=== PATIENT | male | born 1965 | race Caucasian/White ===

== ENCOUNTER 2020-07-12 11:14 | Inpatient (IN) | payer OTHER ==
[2020-07-12 11:40] VITALS: BMI 27.1
[2020-07-12] MEDS ORDERED: LORazepam 1 MG TABLET PO PRN (11:58)
[2020-07-12] MEDS ORDERED: ACETAMINOPHEN 325 MG TABLET (FP) PO PRN ×2 (11:58)
[2020-07-12] MEDS ORDERED: BISMUTH SUBSALICYLATE 524 MG/30 ML UD PO PRN (11:58)
[2020-07-12] MEDS ORDERED: MENTHOL/PHENOL 1 EACH UD MM PRN (11:58)
[2020-07-12] MEDS ORDERED: NICOTINE POLACRILEX 2 MG GUM BUC PRN (11:58)
[2020-07-12] MEDS ORDERED: MAG HYDROX/AL HYDROX/SIMETH 30 ML UNIT-DOSE CUP PO PRN (11:58)
[2020-07-12] MEDS ORDERED: MAGNESIUM HYDROX 2400MG/30ML ORAL SUSPENSION 30 ML CUP PO PRN (11:58)
[2020-07-12] MEDS ORDERED: ONDANSETRON *ODT* 4 MG TABLET SL PRN (11:58)
[2020-07-12] MEDS ORDERED: MAGNESIUM CITRATE 300 ML BOTTLE PO PRN (11:58)
[2020-07-12] MEDS ORDERED: INSULIN (NOVOLOG) ASPART 100 UNITS/ML 10ML VIAL ONE (12:36)
[2020-07-12] MEDS ORDERED: INSULIN (NOVOLOG) ASPART 100 UNITS/ML 10ML VIAL SQ ONE ×2 (13:30→19:04)
[2020-07-12] MEDS: PRENATAL VITAMINS W/ FOLIC ACID TABLET (FP) PO SCH (13:39)
[2020-07-12] MEDS: LORazepam 2 MG TABLET PO SCH ×3 (13:39→22:56)
[2020-07-12] MEDS: hydrOXYzine PAMOATE 25 MG CAPSULE (FP) PO SCH ×3 (13:39→22:56)
[2020-07-12 14:42] LABS: HEMATOCRIT 40.6 % (35.4-49); HEMOGLOBIN 14.2 GM/dL (11.7-16.9); MCH 30.6 pg (25.7-33.7); MEAN CELL VOLUME 87.2 fl (80-96); MEAN PLT VOLUME 8.8 fl (7.5-11.1); PLATELET COUNT 124 K/MM3 (134-434); RBC 4.65 M/mm3 (4.00-5.60); RDW 15.8 % (11.9-15.9); WHITE BLOOD COUNT 5.7 K/mm3 (4.0-10.0)
[2020-07-12 14:49] LABS: CHLORIDE 97 mmol/L (98-107); SODIUM 129 mmol/L (136-145)
[2020-07-12 14:58] LABS: ALBUMIN 3.5 g/dl (3.4-5.0); ANION GAP 11 MMOL/L (8-16); CO2 22 mmol/L (21-32)
[2020-07-12 14:59] LABS: CALCIUM 9.2 mg/dL (8.5-10.1)
[2020-07-12 15:01] LABS: CREATININE 0.8 mg/dL (0.55-1.3); SGOT/AST 63 U/L (15-37); SGPT/ALT 49 U/L (13-61)
[2020-07-12 15:02] LABS: BILIRUBIN,TOTAL 2.8 mg/dL (0.2-1)
[2020-07-12 15:03] LABS: TOT PROT 7.7 g/dl (6.4-8.2)
[2020-07-12 15:04] LABS: ALK PHOS 194 U/L (45-117)
[2020-07-12 15:09] LABS: GLUCOSE,RANDOM 440 mg/dL (74-106)
[2020-07-12] MEDS ORDERED: INSULIN SLIDING SCALE (NOVOLOG) 1 VIAL SQ ONE (17:00)
[2020-07-12] MEDS: INSULIN SLIDING SCALE (NOVOLOG) 1 VIAL SQ SCH ×2 (17:05→22:56)
[2020-07-12] MEDS: THIAMINE HCL 100 MG TABLET (FP) PO SCH (22:56)
[2020-07-12] MEDS: MELATONIN 5 MG TABLETS PO SCH (22:56)
[2020-07-13] MEDS: LORazepam 2 MG TABLET PO SCH ×4 (06:23→22:25)
[2020-07-13] MEDS: hydrOXYzine PAMOATE 25 MG CAPSULE (FP) PO SCH ×5 (06:23→22:25)
[2020-07-13] MEDS: INSULIN SLIDING SCALE (NOVOLOG) 1 VIAL SQ SCH ×4 (06:25→22:21)
[2020-07-13] MEDS: PRENATAL VITAMINS W/ FOLIC ACID TABLET (FP) PO SCH (10:22)
[2020-07-13] MEDS ORDERED: INSULIN SLIDING SCALE (NOVOLOG) 1 VIAL SQ ONE ×2 (11:57→16:52)
[2020-07-13] MEDS ORDERED: INSULIN NPH HUMAN ISOPHANE SQ SCH (12:00)
[2020-07-13] MEDS: SUCRALFATE 1 GM TABLET (FP) PO SCH ×2 (15:35→18:16)
[2020-07-13] MEDS: PANTOPRAZOLE 40 MG TABLET PO SCH (15:35)
[2020-07-13] MEDS: INSULIN (LEVEMIR) 100 UNITS/ML UNITS SQ SCH (22:22)
[2020-07-13] MEDS: THIAMINE HCL 100 MG TABLET (FP) PO SCH (22:25)
[2020-07-13] MEDS: levETIRAcetam 500 MG TABLET (FP) PO SCH (22:25)
[2020-07-13] MEDS: MELATONIN 5 MG TABLETS PO SCH (22:25)
[2020-07-14] MEDS: LORazepam 1 MG TABLET PO SCH ×4 (05:35→22:53)
[2020-07-14] MEDS: hydrOXYzine PAMOATE 25 MG CAPSULE (FP) PO SCH ×2 (05:36→10:36)
[2020-07-14] MEDS ORDERED: INSULIN SLIDING SCALE (NOVOLOG) 1 VIAL SQ ONE ×3 (06:44→17:08)
[2020-07-14] MEDS: INSULIN SLIDING SCALE (NOVOLOG) 1 VIAL SQ SCH ×4 (06:45→22:50)
[2020-07-14] MEDS: SUCRALFATE 1 GM TABLET (FP) PO SCH ×2 (06:46→18:13)
[2020-07-14] MEDS: PRENATAL VITAMINS W/ FOLIC ACID TABLET (FP) PO SCH (10:36)
[2020-07-14] MEDS: levETIRAcetam 500 MG TABLET (FP) PO SCH ×2 (10:36→22:53)
[2020-07-14] MEDS: PANTOPRAZOLE 40 MG TABLET PO SCH (10:36)
[2020-07-14] MEDS ORDERED: LACTULOSE 20 GM/30 ML UDC (FOR ORAL USE ONLY) PO PRN (11:56)
[2020-07-14] MEDS: METHOCARBAMOL 500 MG TABLET PO PRN (12:08)
[2020-07-14] MEDS: LACTULOSE 20 GM/30 ML UDC (FOR ORAL USE ONLY) PO SCH ×3 (13:26→22:53)
[2020-07-14] MEDS: INSULIN (LEVEMIR) 100 UNITS/ML UNITS SQ SCH (22:51)
[2020-07-14] MEDS: THIAMINE HCL 100 MG TABLET (FP) PO SCH (22:53)
[2020-07-14] MEDS: MELATONIN 5 MG TABLETS PO SCH (22:53)
[2020-07-14] MEDS: IBUPROFEN 400 MG TABLET (FP) PO PRN (22:56)
[2020-07-15] MEDS ORDERED: LORazepam 0.5 MG TABLET PO PRN
[2020-07-15] MEDS: LORazepam 0.5 MG TABLET PO SCH ×4 (05:45→23:25)
[2020-07-15] MEDS: INSULIN SLIDING SCALE (NOVOLOG) 1 VIAL SQ SCH ×4 (07:29→23:17)
[2020-07-15] MEDS: SUCRALFATE 1 GM TABLET (FP) PO SCH ×2 (07:31→18:20)
[2020-07-15] MEDS ORDERED: INSULIN SLIDING SCALE (NOVOLOG) 1 VIAL SQ ONE ×3 (07:34→17:18)
[2020-07-15 08:06] LABS: SARS-CoV-2 NAA Not Detected (Not Detected)
[2020-07-15] MEDS: PANTOPRAZOLE 40 MG TABLET PO SCH (11:09)
[2020-07-15] MEDS: PRENATAL VITAMINS W/ FOLIC ACID TABLET (FP) PO SCH (11:09)
[2020-07-15] MEDS: levETIRAcetam 500 MG TABLET (FP) PO SCH ×2 (11:09→23:25)
[2020-07-15] MEDS: METHOCARBAMOL 500 MG TABLET PO PRN (11:12)
[2020-07-15] MEDS: LACTULOSE 20 GM/30 ML UDC (FOR ORAL USE ONLY) PO SCH ×4 (11:12→23:18)
[2020-07-15] MEDS: THIAMINE HCL 100 MG TABLET (FP) PO SCH (23:25)
[2020-07-15] MEDS: INSULIN (LEVEMIR) 100 UNITS/ML UNITS SQ SCH (23:25)
[2020-07-15] MEDS: MELATONIN 5 MG TABLETS PO SCH (23:25)
[2020-07-16] MEDS: METHOCARBAMOL 500 MG TABLET PO PRN ×2 (02:09→13:22)
[2020-07-16] MEDS: hydrOXYzine PAMOATE 25 MG CAPSULE (FP) PO PRN ×2 (02:09→06:03)
[2020-07-16] MEDS ORDERED: LORazepam 0.5 MG TABLET PO ONE (05:00)
[2020-07-16] MEDS: SUCRALFATE 1 GM TABLET (FP) PO SCH (06:03)
[2020-07-16] MEDS: INSULIN SLIDING SCALE (NOVOLOG) 1 VIAL SQ SCH ×2 (06:45→11:54)
[2020-07-16] MEDS ORDERED: INSULIN SLIDING SCALE (NOVOLOG) 1 VIAL SQ ONE ×2 (06:46→11:52)
[2020-07-16] MEDS: IBUPROFEN 400 MG TABLET (FP) PO PRN (06:52)
[2020-07-16] MEDS: PANTOPRAZOLE 40 MG TABLET PO SCH (10:57)
[2020-07-16] MEDS: PRENATAL VITAMINS W/ FOLIC ACID TABLET (FP) PO SCH (10:57)
[2020-07-16] MEDS: levETIRAcetam 500 MG TABLET (FP) PO SCH (10:57)
[2020-07-16] MEDS: LACTULOSE 20 GM/30 ML UDC (FOR ORAL USE ONLY) PO SCH (10:58)
[2020-07-16 13:07] VITALS: BP 108/67; PULSE 64; TEMP 96.4
== END 2020-07-16 13:24 | disposition other institution (70) | DRG 897 ==
LOC: YASAS 11:14 → Y3N 13:04
PROVIDERS: ADMIT Allergy & Immunology; ATTEND Allergy & Immunology
PROC: HZ2ZZZZ Detoxification Services for Substance Abuse Treatment (ICD-10-PCS; principal; 2020-07-12)
DX: F10.230 Alcohol dependence with withdrawal, uncomplicated (principal); F17.210 Nicotine dependence, cigarettes, uncomplicated; F19.24 Other psychoactive substance dependence with psychoactive substance-induced mood disorder; F31.9 Bipolar disorder, unspecified; F43.10 Post-traumatic stress disorder, unspecified; G40.909 Epilepsy, unspecified, not intractable, without status epilepticus; E11.65 Type 2 diabetes mellitus with hyperglycemia; I10 Essential (primary) hypertension; K74.60 Unspecified cirrhosis of liver; R79.89 Other specified abnormal findings of blood chemistry; Z79.4 Long term (current) use of insulin; Z86.16 Personal history of COVID-19; Z86.711 Personal history of pulmonary embolism; Z59.0 Homelessness; Z56.0 Unemployment, unspecified
CPT/HCPCS: 36415; 71046-TC-FY; 80053; 80177; 82140; 82962; 83036; 85027; 86780; 93005; 93010; C9803; U0003; U0005

== ENCOUNTER 2021-07-10 21:08 | Inpatient (IN) | payer OTHER ==
[2021-07-10 21:19] VITALS: BMI 29.8
[2021-07-10] MEDS ORDERED: LORazepam 2 MG/ML SDV VIAL IVPUSH ONE (21:58)
[2021-07-10 23:19] LABS: BASO % 1.6 % (0-2.0); EOS % 0.9 % (0-4.5); HEMATOCRIT 40.6 % (35.4-49); HEMOGLOBIN 14.1 GM/dL (11.7-16.9); LYMPH % 17.7 % (8-40); MCH 31.6 pg (25.7-33.7); MCHC 34.8 g/dl (32.0-35.9); MEAN CELL VOLUME 90.8 fl (80-96); MEAN PLT VOLUME 8.7 fl (7.5-11.1); MONO % 9.4 % (3.8-10.2); NEUT % 70.4 % (42.8-82.8); PLATELET COUNT 223 10^3/uL (134-434); RBC 4.48 M/mm3 (4.00-5.60); RDW 19.1 % (11.9-15.9)
[2021-07-10 23:26] LABS: INR 1.16 (0.83-1.09); PROTHROMBIN TIME (PATIENT) 13.4 SEC (9.7-13.0)
[2021-07-10 23:28] LABS: ACTIVATED PTT 31.8 SECONDS (25.2-36.5)
[2021-07-10 23:42] LABS: PH,URINE 7.5 (5.0-8.0); URINE APPEARANCE CLEAR; URINE BILIRUBIN NEGATIVE (NEGATIVE); URINE COLOR YELLOW; URINE GLUCOSE (UA) 3+ (NEGATIVE); URINE KETONE NEGATIVE (NEGATIVE); URINE LEUK ESTERASE NEGATIVE (NEGATIVE); URINE NITRITE NEGATIVE (NEGATIVE); URINE PROTEIN NEGATIVE (NEGATIVE)
[2021-07-10 23:42] LABS: CHLORIDE 104 mmol/L (98-107); SODIUM 138 mmol/L (136-145)
[2021-07-10 23:44] LABS: CALCIUM 8.9 mg/dL (8.5-10.1)
[2021-07-10 23:45] LABS: ALBUMIN 3.3 g/dl (3.4-5.0); ANION GAP 7 MMOL/L (8-16); BLOOD UREA NITROGEN 8.9 mg/dL (7-18); CO2 27 mmol/L (21-32); GLUCOSE,RANDOM 312 mg/dL (74-106); LIPASE 345 U/L (73-393)
[2021-07-10 23:47] LABS: CREATININE 0.6 mg/dL (0.55-1.3); SGOT/AST 132 U/L (15-37)
[2021-07-10 23:48] LABS: SGPT/ALT 133 U/L (13-61)
[2021-07-10 23:49] LABS: BILIRUBIN,TOTAL 2.4 mg/dL (0.2-1); TOT PROT 8.2 g/dl (6.4-8.2)
[2021-07-10 23:50] LABS: ALK PHOS 145 U/L (45-117)
[2021-07-11] MEDS ORDERED: THIAMINE HCL 200 MG/2 ML VIAL IVPB ONE (02:16)
[2021-07-11] MEDS ORDERED: SODIUM CHLORIDE 500 ML IV STA (02:18)
[2021-07-11] MEDS ORDERED: levETIRAcetam 500 MG/5 ML INJECTION VIAL IVPB ONE (02:25)
[2021-07-11] MEDS: LORazepam 2 MG/ML SDV VIAL IVPUSH PRN ×2 (04:06→21:14)
[2021-07-11] MEDS ORDERED: GABAPENTIN 300 MG CAPSULE ONE (07:00)
[2021-07-11] MEDS: GABAPENTIN 300 MG CAPSULE PO SCH ×3 (07:24→21:13)
[2021-07-11] MEDS ORDERED: FOLIC ACID INJECTION - 1 MG, THIAMINE HCL 100 MG, MULTIVIT INJECTION ADULT 10 ML in SOD... IVPB ONE (07:27)
[2021-07-11] MEDS: INSULIN SLIDING SCALE (NOVOLOG) 1 VIAL SQ SCH ×4 (07:29→21:58)
[2021-07-11] MEDS ORDERED: DEXTROSE 5%-WATER - 50 ML IVPB ONE (10:42)
[2021-07-11] MEDS ORDERED: cefTRIAXone SODIUM 1 GM VIAL ONE (10:42)
[2021-07-11] MEDS ORDERED: LACTULOSE 20 GM/30 ML UDC (FOR ORAL USE ONLY) PO PRN (10:44)
[2021-07-11] MEDS: ENOXAPARIN NA (PORCINE) 40 MG/0.4 ML DISP.SYRIN SQ SCH (10:50)
[2021-07-11] MEDS: NIFEdipine E.R 60 MG TABLET PO SCH (10:50)
[2021-07-11] MEDS: levETIRAcetam 250 MG TABLET PO SCH ×2 (10:50→21:13)
[2021-07-11] MEDS: TAMSULOSIN HCL 0.4 MG CAP PO SCH (10:50)
[2021-07-11] MEDS: PANTOPRAZOLE 40 MG TABLET PO SCH (10:50)
[2021-07-11] MEDS: CEFTRIAXONE 1 GM in DEXTROSE 5%-WATER - 50 ML IVPB SCH (10:51)
[2021-07-11] MEDS ORDERED: METOCLOPRAMIDE HCL INJECTION 10 MG/2 ML VIAL IVPUSH PRN (12:40)
[2021-07-11 14:18] LABS: BASO % 2.7 % (0-2.0); EOS % 3.9 % (0-4.5); HEMATOCRIT 37.8 % (35.4-49); HEMOGLOBIN 13.2 GM/dL (11.7-16.9); MCH 31.4 pg (25.7-33.7); MEAN CELL VOLUME 89.7 fl (80-96); MEAN PLT VOLUME 8.5 fl (7.5-11.1); MONO % 12.3 % (3.8-10.2); NEUT % 60.1 % (42.8-82.8); PLATELET COUNT 198 10^3/uL (134-434); RBC 4.21 M/mm3 (4.00-5.60); RDW 18.3 % (11.9-15.9)
[2021-07-11 14:32] LABS: CALCIUM 8.1 mg/dL (8.5-10.1)
[2021-07-11 14:33] LABS: ALBUMIN 2.7 g/dl (3.4-5.0); BLOOD UREA NITROGEN 7.8 mg/dL (7-18); MAGNESIUM 1.9 mg/dL (1.8-2.4)
[2021-07-11 14:35] LABS: BILIRUBIN,DIRECT 1.6 mg/dL (0.0-0.2)
[2021-07-11 14:36] LABS: CREATININE 0.5 mg/dL (0.55-1.3); PHOSPHOROUS 2.9 mg/dL (2.5-4.9)
[2021-07-11 14:37] LABS: BILIRUBIN,TOTAL 2.4 mg/dL (0.2-1); TOT PROT 6.6 g/dl (6.4-8.2)
[2021-07-11] MEDS: SODIUM CHLORIDE 1,000 ML IV SCH (21:07)
[2021-07-11] MEDS: LACTULOSE 20 GM/30 ML UDC (FOR ORAL USE ONLY) PO SCH (21:13)
[2021-07-11] MEDS ORDERED: MELATONIN 5 MG TABLETS PO ONE ×2 (23:12→23:45)
[2021-07-12] MEDS: LACTULOSE 20 GM/30 ML UDC (FOR ORAL USE ONLY) PO SCH ×4 (06:09→22:36)
[2021-07-12] MEDS: INSULIN SLIDING SCALE (NOVOLOG) 1 VIAL SQ SCH ×4 (06:09→22:41)
[2021-07-12] MEDS: GABAPENTIN 300 MG CAPSULE PO SCH ×3 (06:09→22:36)
[2021-07-12 08:33] LABS: BASO % 1.9 % (0-2.0); HEMATOCRIT 36.6 % (35.4-49); HEMOGLOBIN 12.9 GM/dL (11.7-16.9); LYMPH % 22.2 % (8-40); MCH 31.6 pg (25.7-33.7); MCHC 35.3 g/dl (32.0-35.9); MEAN CELL VOLUME 89.5 fl (80-96); MEAN PLT VOLUME 8.9 fl (7.5-11.1); MONO % 9.3 % (3.8-10.2); NEUT % 62.6 % (42.8-82.8); PLATELET COUNT 199 10^3/uL (134-434); RBC 4.09 M/mm3 (4.00-5.60); RDW 18.8 % (11.9-15.9); WHITE BLOOD COUNT 3.4 K/mm3 (4.0-10.0)
[2021-07-12 08:42] LABS: INR 1.17 (0.83-1.09); PROTHROMBIN TIME (PATIENT) 13.5 SEC (9.7-13.0)
[2021-07-12 09:34] LABS: ALBUMIN 2.6 g/dl (3.4-5.0); MAGNESIUM 1.7 mg/dL (1.8-2.4)
[2021-07-12 09:35] LABS: CREATININE 0.6 mg/dL (0.55-1.3)
[2021-07-12 09:36] LABS: CALCIUM 8.4 mg/dL (8.5-10.1)
[2021-07-12 09:37] LABS: BLOOD UREA NITROGEN 11.4 mg/dL (7-18)
[2021-07-12 09:39] LABS: BILIRUBIN,DIRECT 1.3 mg/dL (0.0-0.2); TOT PROT 6.4 g/dl (6.4-8.2)
[2021-07-12 09:40] LABS: PHOSPHOROUS 3.1 mg/dL (2.5-4.9)
[2021-07-12] MEDS ORDERED: propRANOLol HCL 10 MG TABLET PO SCH (10:00)
[2021-07-12] MEDS ORDERED: cefTRIAXone SODIUM 1 GM VIAL ONE (10:37)
[2021-07-12] MEDS ORDERED: DEXTROSE 5%-WATER - 50 ML IVPB ONE (10:37)
[2021-07-12] MEDS: SODIUM CHLORIDE 1,000 ML IV SCH ×2 (10:51→17:44)
[2021-07-12] MEDS: levETIRAcetam 250 MG TABLET PO SCH ×2 (10:52→22:36)
[2021-07-12] MEDS: ENOXAPARIN NA (PORCINE) 40 MG/0.4 ML DISP.SYRIN SQ SCH (10:52)
[2021-07-12] MEDS: LORazepam 2 MG/ML SDV VIAL IVPUSH PRN (10:52)
[2021-07-12] MEDS: TAMSULOSIN HCL 0.4 MG CAP PO SCH (10:53)
[2021-07-12] MEDS: propRANOLol HCL 10 MG TABLET PO SCH (10:53)
[2021-07-12] MEDS: NIFEdipine E.R 60 MG TABLET PO SCH (10:53)
[2021-07-12] MEDS: PANTOPRAZOLE 40 MG TABLET PO SCH (10:53)
[2021-07-12] MEDS: CEFTRIAXONE 1 GM in DEXTROSE 5%-WATER - 50 ML IVPB SCH (10:54)
[2021-07-12] MEDS ORDERED: LORazepam 1 MG TABLET PO PRN (11:49)
[2021-07-12] MEDS ORDERED: LORazepam 2 MG TABLET PO ONE (11:49)
[2021-07-12] MEDS ORDERED: LORazepam 2 MG TABLET PO SCH (17:00)
[2021-07-12] MEDS: LORazepam 1 MG TABLET PO SCH ×2 (17:53→22:42)
[2021-07-12] MEDS: KETOCONAZOLE 2% CREAM - 60GM TUBE TP SCH (19:58)
[2021-07-13] MEDS: LORazepam 1 MG TABLET PO SCH ×4 (04:29→23:05)
[2021-07-13] MEDS: LACTULOSE 20 GM/30 ML UDC (FOR ORAL USE ONLY) PO SCH ×2 (06:19→09:04)
[2021-07-13] MEDS: GABAPENTIN 300 MG CAPSULE PO SCH ×3 (06:20→21:28)
[2021-07-13] MEDS: INSULIN SLIDING SCALE (NOVOLOG) 1 VIAL SQ SCH ×4 (06:21→21:30)
[2021-07-13 08:10] LABS: BASO % 0.6 % (0-2.0); EOS % 1.3 % (0-4.5); HEMATOCRIT 36.8 % (35.4-49); LYMPH % 13.1 % (8-40); MCH 31.7 pg (25.7-33.7); MCHC 35.4 g/dl (32.0-35.9); MEAN CELL VOLUME 89.6 fl (80-96); MEAN PLT VOLUME 8.7 fl (7.5-11.1); MONO % 7.8 % (3.8-10.2); NEUT % 77.2 % (42.8-82.8); PLATELET COUNT 210 10^3/uL (134-434); RDW 18.8 % (11.9-15.9); WHITE BLOOD COUNT 7.9 K/mm3 (4.0-10.0)
[2021-07-13] MEDS ORDERED: cefTRIAXone SODIUM 1 GM VIAL ONE (08:39)
[2021-07-13] MEDS ORDERED: DEXTROSE 5%-WATER - 50 ML IVPB ONE (08:39)
[2021-07-13 08:46] LABS: ALBUMIN 2.4 g/dl (3.4-5.0); BLOOD UREA NITROGEN 8.5 mg/dL (7-18); CALCIUM 7.9 mg/dL (8.5-10.1)
[2021-07-13 08:49] LABS: BILIRUBIN,DIRECT 1.1 mg/dL (0.0-0.2); CREATININE 0.6 mg/dL (0.55-1.3)
[2021-07-13 08:51] LABS: BILIRUBIN,TOTAL 1.7 mg/dL (0.2-1); TOT PROT 6.2 g/dl (6.4-8.2)
[2021-07-13 08:54] LABS: INR 1.32 (0.83-1.09); PROTHROMBIN TIME (PATIENT) 15.2 SEC (9.7-13.0)
[2021-07-13] MEDS: SODIUM CHLORIDE 1,000 ML IV SCH ×2 (08:55→13:04)
[2021-07-13] MEDS: TAMSULOSIN HCL 0.4 MG CAP PO SCH (09:04)
[2021-07-13] MEDS: PANTOPRAZOLE 40 MG TABLET PO SCH (09:05)
[2021-07-13] MEDS: NIFEdipine E.R 60 MG TABLET PO SCH (09:05)
[2021-07-13] MEDS: levETIRAcetam 250 MG TABLET PO SCH ×2 (09:05→21:27)
[2021-07-13] MEDS: propRANOLol HCL 10 MG TABLET PO SCH (09:06)
[2021-07-13] MEDS: ENOXAPARIN NA (PORCINE) 40 MG/0.4 ML DISP.SYRIN SQ SCH (09:07)
[2021-07-13] MEDS: CEFTRIAXONE 1 GM in DEXTROSE 5%-WATER - 50 ML IVPB SCH (09:07)
[2021-07-13] MEDS: MULTIVITAMINS (DAILY MVI) TABLET (FP) PO SCH (11:26)
[2021-07-13] MEDS: KETOCONAZOLE 2% CREAM - 60GM TUBE TP SCH (11:29)
[2021-07-13] MEDS ORDERED: POTASSIUM CHLORIDE TABS 20 MEQ TABLET.ER (FP) PO ONE (12:00)
[2021-07-13] MEDS ORDERED: LACTULOSE 20 GM/30 ML UDC (FOR ORAL USE ONLY) PO SCH (14:00)
[2021-07-13] MEDS ORDERED: PANTOPRAZOLE 20 MG TABLET PO SCH (14:40)
[2021-07-13] MEDS: THIAMINE HCL 100 MG TABLET (FP) PO SCH ×2 (17:49→21:28)
[2021-07-13] MEDS: FOLIC ACID 1 MG TABLET (FP) PO SCH (17:49)
[2021-07-13] MEDS: PANTOPRAZOLE 20 MG TABLET PO SCH (21:27)
[2021-07-13] MEDS: POLYETHYLENE GLYCOL (HEALTHYLAX) 3350 17 GM PACKET PO SCH (21:28)
[2021-07-13] MEDS ORDERED: INSULIN (LEVEMIR) 100 UNITS/ML UNITS SQ SCH (22:00)
[2021-07-14] MEDS: LORazepam 1 MG TABLET PO SCH ×3 (05:50→17:04)
[2021-07-14] MEDS: GABAPENTIN 300 MG CAPSULE PO SCH ×2 (05:51→14:53)
[2021-07-14] MEDS ORDERED: SIMETHICONE 80 MG TAB.CHEW (FP) PO ONE (05:55)
[2021-07-14] MEDS: INSULIN SLIDING SCALE (NOVOLOG) 1 VIAL SQ SCH ×3 (06:02→16:46)
[2021-07-14] MEDS: POLYETHYLENE GLYCOL (HEALTHYLAX) 3350 17 GM PACKET PO SCH (09:15)
[2021-07-14] MEDS: THIAMINE HCL 100 MG TABLET (FP) PO SCH (09:15)
[2021-07-14] MEDS: propRANOLol HCL 10 MG TABLET PO SCH (09:15)
[2021-07-14] MEDS: MULTIVITAMINS (DAILY MVI) TABLET (FP) PO SCH (09:15)
[2021-07-14] MEDS: PANTOPRAZOLE 20 MG TABLET PO SCH (09:16)
[2021-07-14] MEDS: TAMSULOSIN HCL 0.4 MG CAP PO SCH (09:16)
[2021-07-14] MEDS: levETIRAcetam 250 MG TABLET PO SCH (09:16)
[2021-07-14] MEDS: FOLIC ACID 1 MG TABLET (FP) PO SCH (09:16)
[2021-07-14] MEDS: NIFEdipine E.R 60 MG TABLET PO SCH (09:16)
[2021-07-14] MEDS: ENOXAPARIN NA (PORCINE) 40 MG/0.4 ML DISP.SYRIN SQ SCH (09:20)
[2021-07-14] MEDS: KETOCONAZOLE 2% CREAM - 60GM TUBE TP SCH (09:21)
[2021-07-14 09:24] VITALS: PULSE 96; TEMP 98.5
[2021-07-14 11:03] LABS: INR 1.25 (0.83-1.09); PROTHROMBIN TIME (PATIENT) 14.4 SEC (9.7-13.0)
[2021-07-14 11:04] LABS: BASO % 0.4 % (0-2.0); EOS % 1.3 % (0-4.5); HEMATOCRIT 40.2 % (35.4-49); HEMOGLOBIN 13.9 GM/dL (11.7-16.9); LYMPH % 11.8 % (8-40); MCH 31.6 pg (25.7-33.7); MCHC 34.6 g/dl (32.0-35.9); MEAN CELL VOLUME 91.1 fl (80-96); MEAN PLT VOLUME 9.2 fl (7.5-11.1); MONO % 7.4 % (3.8-10.2); NEUT % 79.1 % (42.8-82.8); PLATELET COUNT 222 10^3/uL (134-434); RBC 4.41 M/mm3 (4.00-5.60); RDW 18.9 % (11.9-15.9); WHITE BLOOD COUNT 8.9 K/mm3 (4.0-10.0)
[2021-07-14 11:16] LABS: CALCIUM 8.1 mg/dL (8.5-10.1)
[2021-07-14 11:17] LABS: ALBUMIN 2.7 g/dl (3.4-5.0); BLOOD UREA NITROGEN 10.9 mg/dL (7-18)
[2021-07-14 11:20] LABS: BILIRUBIN,DIRECT 1.1 mg/dL (0.0-0.2); CREATININE 0.6 mg/dL (0.55-1.3)
[2021-07-14 11:22] LABS: BILIRUBIN,TOTAL 1.6 mg/dL (0.2-1); TOT PROT 6.8 g/dl (6.4-8.2)
[2021-07-14] MEDS ORDERED: INSULIN SLIDING SCALE (NOVOLOG) 1 VIAL SQ ONE (11:30)
[2021-07-14] MEDS: SODIUM CHLORIDE 1,000 ML IV SCH (13:00)
[2021-07-14 15:00] VITALS: BP 126/71
[2021-07-15] MEDS ORDERED: LORazepam 0.5 MG TABLET PO PRN
[2021-07-15] MEDS ORDERED: LORazepam 0.5 MG TABLET PO SCH (05:00)
[2021-07-16] MEDS ORDERED: LORazepam 0.5 MG TABLET PO ONE (05:00)
== END 2021-07-14 17:28 | disposition home or self-care (01) | DRG 433 ==
LOC: JER 21:08 → JERBED 07-11 01:34 → J5S 07-11 08:59
PROVIDERS: ADMIT Internal Medicine
PROC: HZ2ZZZZ Detoxification Services for Substance Abuse Treatment (ICD-10-PCS; principal; 2021-07-11)
DX: K70.30 Alcoholic cirrhosis of liver without ascites (principal); F10.239 Alcohol dependence with withdrawal, unspecified; I85.00 Esophageal varices without bleeding; K70.10 Alcoholic hepatitis without ascites; I10 Essential (primary) hypertension; N40.0 Benign prostatic hyperplasia without lower urinary tract symptoms; R74.01 Elevation of levels of liver transaminase levels; E87.6 Hypokalemia; E11.65 Type 2 diabetes mellitus with hyperglycemia
CPT/HCPCS: 36415; 70450-TC; 71260-TC; 72125-TC; 74177-TC; 74178-TC; 74181-TC; 76705-TC; 80048; 80053; 80061; 80076; 80177; 80307; 81003; 82105; 82140; 82248; 82550; 82728; 82962; 82977; 83036; 83540; 83550; 83690; 83735; 84100; 84484; 85025; 85610; 85730; 86705; 86709; 86803; 87086; 87340; 87517; 93005; 93010; 99285-25; C9803-CS; U0003; U0005

== ENCOUNTER 2021-07-25 09:26 | Inpatient (IN) | payer OTHER ==
[2021-07-25] MEDS ORDERED: IBUPROFEN 400 MG TABLET (FP) PO PRN (10:49)
[2021-07-25] MEDS ORDERED: DICYCLOMINE HCL 10 MG CAPSULE PO PRN (10:49)
[2021-07-25] MEDS ORDERED: BENZOCAINE/MENTHOL (CHLORASEPTIC ) LOZENGE MM PRN (10:49)
[2021-07-25] MEDS ORDERED: LOPERAMIDE HCL 2 MG CAPSULE PO PRN (10:49)
[2021-07-25] MEDS ORDERED: MAGNESIUM HYDROX 2400MG/30ML ORAL SUSPENSION 30 ML CUP PO PRN (10:49)
[2021-07-25] MEDS ORDERED: ACETAMINOPHEN 325 MG TABLET (FP) PO PRN ×2 (10:49)
[2021-07-25] MEDS ORDERED: ONDANSETRON *ODT* 4 MG TABLET SL PRN (10:49)
[2021-07-25] MEDS ORDERED: MAGNESIUM CITRATE 300 ML BOTTLE PO PRN (10:49)
[2021-07-25] MEDS ORDERED: BISMUTH SUBSALICYLATE 262 MG/15 ML BTL PO PRN (10:49)
[2021-07-25] MEDS ORDERED: MAG HYDROX/AL HYDROX/SIMETH 30 ML UNIT-DOSE CUP PO PRN (10:49)
[2021-07-25 11:22] VITALS: BMI 29.8
[2021-07-25] MEDS ORDERED: INSULIN (NOVOLOG) ASPART 100 UNITS/ML 10ML VIAL SQ SCH (12:00)
[2021-07-25] MEDS: NICOTINE 7 MG/24 HOURS TOPICAL PATCH TD SCH (12:09)
[2021-07-25] MEDS: PRENATAL VITAMINS W/ FOLIC ACID TABLET (FP) PO SCH (12:10)
[2021-07-25] MEDS: METHOCARBAMOL 500 MG TABLET PO PRN (12:29)
[2021-07-25] MEDS ORDERED: INSULIN SLIDING SCALE (NOVOLOG) 1 VIAL SQ ONE ×2 (14:53→17:20)
[2021-07-25] MEDS: hydrOXYzine PAMOATE 25 MG CAPSULE (FP) PO SCH ×3 (15:00→22:05)
[2021-07-25 15:25] LABS: HEMATOCRIT 36.1 % (35.4-49); HEMOGLOBIN 12.6 GM/dL (11.7-16.9); MCHC 34.8 g/dl (32.0-35.9); MEAN CELL VOLUME 88.9 fl (80-96); MEAN PLT VOLUME 9.3 fl (7.5-11.1); PLATELET COUNT 132 10^3/uL (134-434); RBC 4.06 M/mm3 (4.00-5.60); RDW 18.3 % (11.9-15.9)
[2021-07-25 15:46] LABS: ALBUMIN 2.9 g/dl (3.4-5.0)
[2021-07-25 15:47] LABS: CALCIUM 8.2 mg/dL (8.5-10.1)
[2021-07-25 15:48] LABS: BLOOD UREA NITROGEN 11.8 mg/dL (7-18)
[2021-07-25 15:49] LABS: BILIRUBIN,TOTAL 1.8 mg/dL (0.2-1); TOT PROT 7.3 g/dl (6.4-8.2)
[2021-07-25 15:50] LABS: CREATININE 0.6 mg/dL (0.55-1.3)
[2021-07-25] MEDS: INSULIN SLIDING SCALE (NOVOLOG) 1 VIAL SQ SCH (17:56)
[2021-07-25] MEDS: THIAMINE HCL 100 MG TABLET (FP) PO SCH (22:03)
[2021-07-25] MEDS: MELATONIN 5 MG TABLETS PO SCH (22:03)
[2021-07-25] MEDS: levETIRAcetam 250 MG TABLET PO SCH (22:04)
[2021-07-25] MEDS: INSULIN (LEVEMIR) 100 UNITS/ML UNITS SQ SCH (22:04)
[2021-07-26] MEDS: hydrOXYzine PAMOATE 25 MG CAPSULE (FP) PO SCH ×5 (07:13→22:56)
[2021-07-26] MEDS: INSULIN SLIDING SCALE (NOVOLOG) 1 VIAL SQ SCH ×3 (07:14→18:39)
[2021-07-26] MEDS ORDERED: LORazepam 1 MG TABLET PO PRN (10:04)
[2021-07-26] MEDS: NIFEdipine E.R 60 MG TABLET PO SCH (10:41)
[2021-07-26] MEDS: PRENATAL VITAMINS W/ FOLIC ACID TABLET (FP) PO SCH (10:41)
[2021-07-26] MEDS: PANTOPRAZOLE 40 MG TABLET PO SCH (10:42)
[2021-07-26] MEDS: levETIRAcetam 250 MG TABLET PO SCH ×2 (10:42→22:56)
[2021-07-26] MEDS: TAMSULOSIN HCL 0.4 MG CAP PO SCH (10:42)
[2021-07-26] MEDS: propRANOLol HCL 10 MG TABLET PO SCH (10:42)
[2021-07-26] MEDS: NICOTINE 7 MG/24 HOURS TOPICAL PATCH TD SCH (10:42)
[2021-07-26] MEDS: LORazepam 2 MG TABLET PO SCH ×3 (10:44→22:58)
[2021-07-26] MEDS: METHOCARBAMOL 500 MG TABLET PO PRN (10:44)
[2021-07-26] MEDS ORDERED: INSULIN SLIDING SCALE (NOVOLOG) 1 VIAL SQ ONE ×3 (11:57→16:54)
[2021-07-26] MEDS: MELATONIN 5 MG TABLETS PO SCH (22:55)
[2021-07-26] MEDS: THIAMINE HCL 100 MG TABLET (FP) PO SCH (22:55)
[2021-07-26] MEDS: INSULIN (LEVEMIR) 100 UNITS/ML UNITS SQ SCH (23:00)
[2021-07-27] MEDS: hydrOXYzine PAMOATE 25 MG CAPSULE (FP) PO SCH ×6 (07:45→23:46)
[2021-07-27] MEDS: LORazepam 2 MG TABLET PO SCH ×5 (07:45→23:44)
[2021-07-27] MEDS: INSULIN SLIDING SCALE (NOVOLOG) 1 VIAL SQ SCH ×3 (07:45→18:20)
[2021-07-27 11:08] LABS: CALCIUM 8.3 mg/dL (8.5-10.1)
[2021-07-27 11:09] LABS: ALBUMIN 2.6 g/dl (3.4-5.0); BLOOD UREA NITROGEN 11.9 mg/dL (7-18)
[2021-07-27 11:12] LABS: CREATININE 0.5 mg/dL (0.55-1.3)
[2021-07-27 11:13] LABS: BILIRUBIN,TOTAL 1.3 mg/dL (0.2-1); TOT PROT 6.5 g/dl (6.4-8.2)
[2021-07-27] MEDS: PRENATAL VITAMINS W/ FOLIC ACID TABLET (FP) PO SCH (11:58)
[2021-07-27] MEDS: NICOTINE 7 MG/24 HOURS TOPICAL PATCH TD SCH (11:58)
[2021-07-27] MEDS: propRANOLol HCL 10 MG TABLET PO SCH (11:59)
[2021-07-27] MEDS: PANTOPRAZOLE 40 MG TABLET PO SCH (11:59)
[2021-07-27] MEDS: levETIRAcetam 250 MG TABLET PO SCH ×2 (12:00→23:45)
[2021-07-27] MEDS: NIFEdipine E.R 60 MG TABLET PO SCH (12:00)
[2021-07-27] MEDS: TAMSULOSIN HCL 0.4 MG CAP PO SCH (12:00)
[2021-07-27] MEDS: LACTULOSE 20 GM/30 ML UDC (FOR ORAL USE ONLY) PO SCH ×4 (15:18→23:51)
[2021-07-27] MEDS: INSULIN (LEVEMIR) 100 UNITS/ML UNITS SQ SCH (23:44)
[2021-07-27] MEDS: THIAMINE HCL 100 MG TABLET (FP) PO SCH (23:46)
[2021-07-27] MEDS: MELATONIN 5 MG TABLETS PO SCH (23:47)
[2021-07-28] MEDS: LORazepam 1 MG TABLET PO SCH ×5 (06:56→22:49)
[2021-07-28] MEDS: hydrOXYzine PAMOATE 25 MG CAPSULE (FP) PO SCH ×6 (06:56→22:51)
[2021-07-28] MEDS: INSULIN SLIDING SCALE (NOVOLOG) 1 VIAL SQ SCH ×3 (07:00→17:51)
[2021-07-28] MEDS: levETIRAcetam 250 MG TABLET PO SCH ×2 (10:41→22:42)
[2021-07-28] MEDS: NIFEdipine E.R 60 MG TABLET PO SCH (10:41)
[2021-07-28] MEDS: PRENATAL VITAMINS W/ FOLIC ACID TABLET (FP) PO SCH (10:41)
[2021-07-28] MEDS: propRANOLol HCL 10 MG TABLET PO SCH (10:41)
[2021-07-28] MEDS: PANTOPRAZOLE 40 MG TABLET PO SCH (10:43)
[2021-07-28] MEDS: LACTULOSE 20 GM/30 ML UDC (FOR ORAL USE ONLY) PO SCH ×4 (10:44→22:44)
[2021-07-28] MEDS: TAMSULOSIN HCL 0.4 MG CAP PO SCH (10:44)
[2021-07-28] MEDS: NICOTINE 7 MG/24 HOURS TOPICAL PATCH TD SCH (10:44)
[2021-07-28] MEDS: NICOTINE 10 MG CARTRIDGE (INHALER) IH PRN (10:46)
[2021-07-28] MEDS ORDERED: INSULIN SLIDING SCALE (NOVOLOG) 1 VIAL SQ ONE (11:42)
[2021-07-28] MEDS: THIAMINE HCL 100 MG TABLET (FP) PO SCH (22:42)
[2021-07-28] MEDS: INSULIN (LEVEMIR) 100 UNITS/ML UNITS SQ SCH (22:50)
[2021-07-28] MEDS: MELATONIN 5 MG TABLETS PO SCH (22:51)
[2021-07-29] MEDS ORDERED: LORazepam 0.5 MG TABLET PO PRN
[2021-07-29] MEDS: hydrOXYzine PAMOATE 25 MG CAPSULE (FP) PO SCH ×2 (05:05→10:40)
[2021-07-29] MEDS: LORazepam 0.5 MG TABLET PO SCH ×2 (05:06→10:38)
[2021-07-29] MEDS ORDERED: INSULIN SLIDING SCALE (NOVOLOG) 1 VIAL SQ ONE (05:12)
[2021-07-29] MEDS: INSULIN SLIDING SCALE (NOVOLOG) 1 VIAL SQ SCH ×2 (07:15→12:25)
[2021-07-29] MEDS: propRANOLol HCL 10 MG TABLET PO SCH (10:37)
[2021-07-29] MEDS: PRENATAL VITAMINS W/ FOLIC ACID TABLET (FP) PO SCH (10:37)
[2021-07-29] MEDS: levETIRAcetam 250 MG TABLET PO SCH (10:37)
[2021-07-29] MEDS: TAMSULOSIN HCL 0.4 MG CAP PO SCH (10:38)
[2021-07-29] MEDS: PANTOPRAZOLE 40 MG TABLET PO SCH (10:38)
[2021-07-29] MEDS: NIFEdipine E.R 60 MG TABLET PO SCH (10:38)
[2021-07-29] MEDS: NICOTINE 7 MG/24 HOURS TOPICAL PATCH TD SCH (10:40)
[2021-07-29] MEDS: NICOTINE 10 MG CARTRIDGE (INHALER) IH PRN (10:40)
[2021-07-29] MEDS: LACTULOSE 20 GM/30 ML UDC (FOR ORAL USE ONLY) PO SCH (10:42)
[2021-07-29 14:39] VITALS: BP 140/85; PULSE 96; TEMP 96.9
[2021-07-30] MEDS ORDERED: LORazepam 0.5 MG TABLET PO ONE (05:00)
== END 2021-07-29 23:28 | disposition short-term general hospital (02) | DRG 897 ==
LOC: YASAS 09:26 → Y3N 11:01
PROVIDERS: ADMIT Allergy & Immunology; ATTEND Surgery
PROC: HZ2ZZZZ Detoxification Services for Substance Abuse Treatment (ICD-10-PCS; principal; 2021-07-25)
DX: F10.230 Alcohol dependence with withdrawal, uncomplicated (principal); E72.20 Disorder of urea cycle metabolism, unspecified; F17.210 Nicotine dependence, cigarettes, uncomplicated; F31.9 Bipolar disorder, unspecified; F43.10 Post-traumatic stress disorder, unspecified; G40.909 Epilepsy, unspecified, not intractable, without status epilepticus; I10 Essential (primary) hypertension; K70.31 Alcoholic cirrhosis of liver with ascites; E11.9 Type 2 diabetes mellitus without complications; Z79.4 Long term (current) use of insulin; R41.82 Altered mental status, unspecified; Z86.11 Personal history of tuberculosis; Z86.718 Personal history of other venous thrombosis and embolism; Z87.19 Personal history of other diseases of the digestive system
CPT/HCPCS: 36415; 80053; 82140; 82962; 85027; 86780; 87811; C9803-CS; U0003; U0005

== ENCOUNTER 2021-07-29 14:46 | Observation (INO) | payer OTHER ==
[2021-07-29 16:13] LABS: PH,URINE 5.5 (5.0-8.0); URINE APPEARANCE CLEAR; URINE BILIRUBIN 1+ (NEGATIVE); URINE COLOR DK YELLOW; URINE GLUCOSE (UA) 1+ (NEGATIVE); URINE KETONE TRACE (NEGATIVE); URINE LEUK ESTERASE NEGATIVE (NEGATIVE); URINE NITRITE NEGATIVE (NEGATIVE); URINE PROTEIN NEGATIVE (NEGATIVE)
[2021-07-29] MEDS ORDERED: MIDAZOLAM HCL 2 MG/2 ML SINGLE DOSE VIAL IVPUSH ONE (16:37)
[2021-07-29] MEDS ORDERED: MIDAZOLAM HCL 2 MG/2 ML SINGLE DOSE VIAL ONE (16:38)
[2021-07-29 17:16] LABS: BASO % 0.9 % (0-2.0); EOS % 3.8 % (0-4.5); HEMATOCRIT 37.9 % (35.4-49); HEMOGLOBIN 13.5 GM/dL (11.7-16.9); LYMPH % 21.5 % (8-40); MCH 30.8 pg (25.7-33.7); MCHC 35.5 g/dl (32.0-35.9); MEAN CELL VOLUME 86.9 fl (80-96); MEAN PLT VOLUME 8.7 fl (7.5-11.1); MONO % 10.6 % (3.8-10.2); NEUT % 63.2 % (42.8-82.8); PLATELET COUNT 186 10^3/uL (134-434); RBC 4.37 M/mm3 (4.00-5.60); RDW 17.8 % (11.9-15.9); WHITE BLOOD COUNT 5.2 K/mm3 (4.0-10.0)
[2021-07-29 17:23] LABS: INR 1.22 (0.83-1.09); PROTHROMBIN TIME (PATIENT) 14.1 SEC (9.7-13.0)
[2021-07-29 17:26] LABS: ACTIVATED PTT 31.5 SECONDS (25.2-36.5)
[2021-07-29 17:33] LABS: CALCIUM 8.8 mg/dL (8.5-10.1)
[2021-07-29 17:37] LABS: CREATININE 0.6 mg/dL (0.55-1.3)
[2021-07-29 17:51] LABS: ALBUMIN 3.3 g/dl (3.4-5.0); TOT PROT 8.6 g/dl (6.4-8.2)
[2021-07-29] MEDS ORDERED: THIAMINE HCL 200 MG/2 ML VIAL IVPB ONE (19:39)
[2021-07-29] MEDS ORDERED: LACTULOSE 20 GM/30 ML UDC (FOR ORAL USE ONLY) PO PRN (22:35)
[2021-07-29] MEDS ORDERED: LORazepam 0.5 MG TABLET PO PRN (22:37)
[2021-07-29] MEDS ORDERED: THIAMINE HCL 200 MG/2 ML VIAL ONE (23:10)
[2021-07-30 08:09] VITALS: BMI 29.1
[2021-07-30] MEDS: INSULIN SLIDING SCALE (NOVOLOG) 1 VIAL SQ SCH ×4 (08:18→22:15)
[2021-07-30 08:26] LABS: BASO % 1.1 % (0-2.0); EOS % 3.1 % (0-4.5); HEMATOCRIT 36.4 % (35.4-49); HEMOGLOBIN 12.9 GM/dL (11.7-16.9); LYMPH % 19.3 % (8-40); MCH 30.8 pg (25.7-33.7); MCHC 35.4 g/dl (32.0-35.9); MEAN PLT VOLUME 8.1 fl (7.5-11.1); MONO % 9.3 % (3.8-10.2); NEUT % 67.2 % (42.8-82.8); PLATELET COUNT 168 10^3/uL (134-434); RBC 4.18 M/mm3 (4.00-5.60); RDW 17.5 % (11.9-15.9); WHITE BLOOD COUNT 5.4 K/mm3 (4.0-10.0)
[2021-07-30 08:45] LABS: ALBUMIN 3.1 g/dl (3.4-5.0); CALCIUM 8.4 mg/dL (8.5-10.1); MAGNESIUM 1.7 mg/dL (1.8-2.4)
[2021-07-30 08:46] LABS: BLOOD UREA NITROGEN 13.5 mg/dL (7-18)
[2021-07-30 08:48] LABS: CREATININE 0.7 mg/dL (0.55-1.3); PHOSPHOROUS 2.8 mg/dL (2.5-4.9)
[2021-07-30 08:50] LABS: TOT PROT 7.1 g/dl (6.4-8.2)
[2021-07-30] MEDS ORDERED: levETIRAcetam 500 MG TABLET (FP) PO ONE ×2 (09:24→21:29)
[2021-07-30] MEDS ORDERED: levETIRAcetam 250 MG TABLET PO ONE ×3 (09:24→21:30)
[2021-07-30] MEDS: TAMSULOSIN HCL 0.4 MG CAP PO SCH (09:28)
[2021-07-30] MEDS: PANTOPRAZOLE 40 MG TABLET PO SCH (09:28)
[2021-07-30] MEDS: THIAMINE HCL 200 MG/2 ML VIAL IVPB SCH ×2 (09:28→21:46)
[2021-07-30] MEDS: NIFEdipine E.R 60 MG TABLET PO SCH (09:28)
[2021-07-30] MEDS: LACTULOSE 20 GM/30 ML UDC (FOR ORAL USE ONLY) PO SCH ×4 (09:28→22:12)
[2021-07-30] MEDS: LIDOCAINE 5% TOPICAL PATCH TP SCH ×2 (09:29→09:32)
[2021-07-30] MEDS ORDERED: propRANOLol HCL 10 MG TABLET PO SCH ×2 (10:00)
[2021-07-30] MEDS ORDERED: PATIENT'S OWN MEDICATION (NON-FORMULARY) (Levetiracetam [Levetiracetam] 750 MG Tablet) PO SCH (10:00)
[2021-07-30] MEDS: propRANOLol HCL 10 MG TABLET PO SCH ×2 (15:21→22:11)
[2021-07-30] MEDS ORDERED: MELATONIN 5 MG TABLETS PO ONE (21:37)
[2021-07-30] MEDS ORDERED: INSULIN (LEVEMIR) 100 UNITS/ML UNITS SQ SCH (22:00)
[2021-07-30] MEDS ORDERED: LIDOCAINE PATCH REMOVAL MC SCH (22:00)
[2021-07-30] MEDS ORDERED: LORazepam 1 MG TABLET PO ONE (22:05)
[2021-07-31] MEDS: propRANOLol HCL 10 MG TABLET PO SCH (05:41)
[2021-07-31] MEDS: INSULIN SLIDING SCALE (NOVOLOG) 1 VIAL SQ SCH ×2 (06:33→11:48)
[2021-07-31 07:45] LABS: BASO % 1.1 % (0-2.0); EOS % 3.4 % (0-4.5); HEMATOCRIT 37.5 % (35.4-49); HEMOGLOBIN 13.5 GM/dL (11.7-16.9); LYMPH % 21.2 % (8-40); MCH 30.8 pg (25.7-33.7); MEAN CELL VOLUME 85.6 fl (80-96); MEAN PLT VOLUME 7.9 fl (7.5-11.1); MONO % 10.8 % (3.8-10.2); NEUT % 63.5 % (42.8-82.8); PLATELET COUNT 177 10^3/uL (134-434); RBC 4.39 M/mm3 (4.00-5.60); RDW 17.8 % (11.9-15.9); WHITE BLOOD COUNT 5.6 K/mm3 (4.0-10.0)
[2021-07-31 08:12] LABS: CALCIUM 8.7 mg/dL (8.5-10.1)
[2021-07-31 08:13] LABS: ALBUMIN 3.3 g/dl (3.4-5.0); BLOOD UREA NITROGEN 16.5 mg/dL (7-18)
[2021-07-31 08:16] LABS: CREATININE 0.7 mg/dL (0.55-1.3)
[2021-07-31 08:18] LABS: BILIRUBIN,TOTAL 2.1 mg/dL (0.2-1); TOT PROT 8.2 g/dl (6.4-8.2)
[2021-07-31] MEDS ORDERED: levETIRAcetam 250 MG TABLET PO ONE (08:49)
[2021-07-31] MEDS ORDERED: levETIRAcetam 500 MG TABLET (FP) PO ONE (08:49)
[2021-07-31] MEDS: PANTOPRAZOLE 40 MG TABLET PO SCH (09:53)
[2021-07-31] MEDS: TAMSULOSIN HCL 0.4 MG CAP PO SCH (09:53)
[2021-07-31] MEDS: LACTULOSE 20 GM/30 ML UDC (FOR ORAL USE ONLY) PO SCH ×2 (09:54→10:05)
[2021-07-31] MEDS: THIAMINE HCL 200 MG/2 ML VIAL IVPB SCH ×2 (09:54→10:07)
[2021-07-31] MEDS: NIFEdipine E.R 60 MG TABLET PO SCH (09:54)
[2021-07-31] MEDS: LIDOCAINE 5% TOPICAL PATCH TP SCH ×2 (09:55→10:07)
[2021-07-31 11:03] VITALS: BP 105/66; PULSE 73; TEMP 97.9
== END 2021-07-31 14:21 | disposition left against medical advice (07) ==
LOC: JER 14:46 → JERBED 18:03 → J4S 07-30 06:48
PROVIDERS: ADMIT Internal Medicine
PROC: 3E013VG Introduction of Insulin into Subcutaneous Tissue, Percutaneous Approach (ICD-10-PCS; principal; 2021-07-29)
PROC: 3E033GC Introduction of Other Therapeutic Substance into Peripheral Vein, Percutaneous Approach (ICD-10-PCS; 2021-07-29)
DX: F10.99 Alcohol use, unspecified with unspecified alcohol-induced disorder (principal); E11.42 Type 2 diabetes mellitus with diabetic polyneuropathy; G40.909 Epilepsy, unspecified, not intractable, without status epilepticus; K70.30 Alcoholic cirrhosis of liver without ascites; I10 Essential (primary) hypertension; N40.0 Benign prostatic hyperplasia without lower urinary tract symptoms; Z72.0 Tobacco use
CPT/HCPCS: 36415; 70450-TC; 71046-TC-FY; 80053; 81003; 82140; 82962; 83735; 84100; 84484; 85025; 85610; 85730; 87086; 93005; 93010; 96372; 96374; 99285-25; C9803-CS; G0378; U0003; U0005